=== PATIENT | female | born 1995 | race Caucasian/White ===

== ENCOUNTER 2016-10-12 18:22 | Emergency (ER) | payer MEDICAID ==
[~2016-10-12] VITALS: Ht 165.1 cm; Wt 97.5 kg
[~2016-10-12 18:22] MED LIST: BENT20TA PO
[2016-10-12 18:24] VITALS: BP 123/75; PULSE 118; RESP 14; TEMP 98.8; O2SAT 96
[2016-10-12] MEDS ORDERED: SODIUM CHLOR 0.9% 1000 ML INJ 1,000 ML IV SCH (22:04)
[2016-10-12] MEDS ORDERED: ONDANSETRON HCL 4 MG/2 ML VIAL IVP ONE (22:15)
[2016-10-12] MEDS ORDERED: FAMOTIDINE 20 MG/2 ML VIAL IV PUSH ONE (22:15)
[2016-10-12] MEDS ORDERED: SODIUM CHLORIDE 0.9% FLUSH 5 ML FLUSH IVF PRN (22:15)
[2016-10-12 22:43] LABS: AUTOMATED NEUTROPHIL # 8.5 TH/MM3 (1.8-7.7); BASOPHIL % 0.1 % (0.0-2.0); EOSINOPHIL % 0.1 % (0.0-4.0); HEMATOCRIT 35.7 % (35.0-46.0); HEMO FLAGS DIFF FINAL; LYMPH % 8.5 % (9.0-44.0); LYMPHOCYTE # 0.8 TH/MM3 (1.0-4.8); MEAN CELL VOLUME 79.6 FL (80.0-100.0); MEAN CORPUSCULAR HEMOGLOBIN 27.5 PG (27.0-34.0); MEAN CORPUSCULAR HGB CONC 34.5 % (32.0-36.0); MONO % 4.7 % (0.0-8.0); NEUT % 86.6 % (16.0-70.0); PLATELET COUNT 220 TH/MM3 (150-450); RED BLOOD COUNT 4.48 MIL/MM3 (4.00-5.30); RED CELL DISTRIBUTION WIDTH 13.9 % (11.6-17.2); WHITE BLOOD COUNT 9.8 TH/MM3 (4.0-11.0)
[2016-10-12 22:45] VITALS: RESP 16; O2SAT 96
[2016-10-12 23:04] LABS: ANION GAP 8 MEQ/L (5-15); AST (GOT) 11 U/L (15-37); BICARBONATE 25.8 MEQ/L (21.0-32.0); BLOOD UREA NITROGEN 11 MG/DL (7-18); CHLORIDE 105 MEQ/L (98-107); GLOMERULAR FILTRATION RATE 81 ML/MIN (>89); POTASSIUM 3.5 MEQ/L (3.5-5.1); SODIUM (NA) 139 MEQ/L (136-145)
--- NOTE | 2016-10-12 23:04 | PD ---
HPI Chief Complaint: GI Complaint Time Seen by Provider: 21:57 Travel History International Travel<30 days: No Contact w/Intl Traveler<30days: No Traveled to known affect area: No History of Present Illness HPI Patient is a 21-year-old female who comes in complaining of nausea, vomiting, diarrhea. She says it started early this morning with diarrhea, and the vomiting started. She has had several episodes of both vomiting and diarrhea. She denies seeing any blood in her stool or vomit. She says she has felt chilled, but has not taken her temperature. She says her abdomen hurts all over , but worse in the epigastric area. She denies any dysuria. She does complain of low back pain. She has not been able to keep any food or liquids down today. [facility] Past Medical History Developmental Delay: No Diminished Hearing: No Genitourinary: Yes (UTI) Immunizations Current: Yes ?: Not LMP: 10/2016 Past Surgical History Section: Yes Tonsillectomy: Yes Social History Alcohol Use: No Tobacco Use: No (never) Substance Use: No Allergies-Medications (Allergen,Severity, Reaction): Coded Allergies: Zithromax (Verified Allergy, Severe, HIVES AND ANAPHYLAXIS, 10/12/16) Reported Meds & Prescriptions Reported Meds & Active Scripts Active Zofran Odt (Ondansetron Odt) 4 Mg Tab 4 Mg SL Q6HR PRN Review of Systems Except as stated in HPI: all other systems reviewed are Neg General / Constitutional: Positive: Chills, No: Fever HENT: No: Headaches, Lightheadedness Cardiovascular: No: Chest Pain or Discomfort Respiratory: No: Shortness of Breath Gastrointestinal: Positive: Nausea, Vomiting, Diarrhea, Abdominal Pain Genitourinary: No: Dysuria, Flank Pain Musculoskeletal: Positive: Pain Skin: No Rash, No Change in Pigmentation Neurologic: No: Weakness, Dizziness Physical Exam Narrative GENERAL: Awake and alert in no acute distress. SKIN: Warm and dry. HEAD: Atraumatic. Normocephalic. EYES: Pupils equal and round. No scleral icterus. ENT: No nasal bleeding or discharge. Mucous membranes pink and moist. NECK: Trachea midline. No JVD. CARDIOVASCULAR: Regular rate and rhythm. No murmur appreciated. RESPIRATORY: No accessory muscle use. Clear to auscultation. Breath sounds equal bilaterally. GASTROINTESTINAL: Abdomen soft, nondistended. Very mild diffuse tenderness. Worse in the epigastric area. No CVA tenderness. MUSCULOSKELETAL: No obvious deformities. No clubbing. No cyanosis. No edema. NEUROLOGICAL: Awake and alert. No obvious cranial nerve deficits. Motor grossly within normal limits. Normal speech. PSYCHIATRIC: Appropriate mood and affect; insight and judgment normal. Data Data Last Documented VS Vital Signs Date Time Temp Pulse Resp B/P Pulse Ox O2 Delivery O2 Flow Rate FiO2 10/12/16 22:45 16 96 Room Air 10/12/16 18:24 98.8 118 123/75 Orders Complete Blood Count With Diff (10/12/16 22:04) Comprehensive Metabolic Panel (10/12/16 22:04) Urinalysis - C+S If Indicated (10/12/16 22:04) Ua Includes Microscopic (10/12/16 22:04) Iv Access Insert/Monitor (10/12/16 22:04) Ecg Monitoring (10/12/16 22:04) Oximetry (10/12/16 22:04) Ondansetron Inj (Zofran Inj) (10/12/16 22:15) Sodium Chloride 0.9% Flush (Ns Flush) (10/12/16 22:15) Famotidine Inj (Pepcid Inj) (10/12/16 22:15) Ed Urine Pregnancytest Poc (10/12/16 22:04) Sodium Chlor 0.9% 1000 Ml Inj (Ns 1000 M (10/12/16 22:04) Dicyclomine (Bentyl) (10/13/16 00:15) Labs Laboratory Tests Test 10/12/16 10/12/16 22:22 22:25 White Blood Count 9.8 TH/MM3 Red Blood Count 4.48 MIL/MM3 Hemoglobin 12.3 GM/DL Hematocrit 35.7 % Mean Corpuscular Volume 79.6 FL Mean Corpuscular Hemoglobin 27.5 PG Mean Corpuscular Hemoglobin 34.5 % Concent Red Cell Distribution Width 13.9 % Platelet Count 220 TH/MM3 Mean Platelet Volume 9.1 FL Neutrophils (%) (Auto) 86.6 % Lymphocytes (%) (Auto) 8.5 % Monocytes (%) (Auto) 4.7 % Eosinophils (%) (Auto) 0.1 % Basophils (%) (Auto) 0.1 % Neutrophils # (Auto) 8.5 TH/MM3 Lymphocytes # (Auto) 0.8 TH/MM3 Monocytes # (Auto) 0.5 TH/MM3 Eosinophils # (Auto) 0.0 TH/MM3 Basophils # (Auto) 0.0 TH/MM3 CBC Comment DIFF FINAL Differential Comment Sodium Level 139 MEQ/L Potassium Level 3.5 MEQ/L Chloride Level 105 MEQ/L Carbon Dioxide Level 25.8 MEQ/L Anion Gap 8 MEQ/L Blood Urea Nitrogen 11 MG/DL Creatinine 0.88 MG/DL Estimat Glomerular Filtration 81 ML/MIN Rate Random Glucose 103 MG/DL Calcium Level 8.7 MG/DL Total Bilirubin 1.5 MG/DL Aspartate Amino Transf 11 U/L (AST/SGOT) Alanine Aminotransferase 17 U/L (ALT/SGPT) Alkaline Phosphatase 68 U/L Total Protein 8.2 GM/DL Albumin 3.8 GM/DL Urine Color YELLOW Urine Turbidity CLOUDY Urine pH 6.0 Urine Specific [place] 1.036 Urine Protein 30 mg/dL Urine Glucose (UA) NEG mg/dL Urine Ketones NEG mg/dL Urine Occult Blood LARGE Urine Nitrite NEG Urine Bilirubin NEG Urine Urobilinogen LESS THAN 2.0 MG/DL Urine Leukocyte Esterase NEG Urine RBC 21 /hpf Urine WBC 3 /hpf Urine Squamous Epithelial 3 /hpf Cells Urine Amorphous Sediment OCC Urine Bacteria FEW /hpf Urine Mucus MANY /lpf Microscopic Urinalysis Comment CULT NOT INDICATED MDM Medical Decision Making Medical Screen Exam Complete: Yes Emergency Medical Condition: Yes Differential Diagnosis Gastroenteritis versus gastritis versus colitis versus UTI versus pyelonephritis Narrative Course Patient is a 21-year-old female comes in complaining of nausea vomiting, diarrhea. Exam shows mild tenderness in the abdomen, however abdomen is very soft. IV established, labs sent. Labs show no acute abnormalities. Urinalysis negative for infection. Given IV fluids, Zofran, famotidine, Bentyl. Patient reports improvement of symptoms. She is able to drink Gatorade without vomiting. Will be discharged home. She is comfortable with discharge at this time. Advised to return if she is unable to keep fluids down. Advised to return if she has any worsening pain. Given a prescription for a few Zofran to take as needed for nausea. Diagnosis Primary Impression: Nausea vomiting and diarrhea Patient Instructions: Acute Nausea and Vomiting (ED), General Instructions Additional Instructions: Drink plenty of fluids. If you are hungry, eat a bland diet for at least the next day. Take the Zofran as needed for nausea. Return to the ED as needed for any worsening symptoms. Follow up with your primary care doctor. Scripts Ondansetron Odt (Zofran Odt)4 Mg Tab4 Mg SL Q6HR PRN (Nausea/Vomiting) #10 TAB Ref 0 Prov:Brandi Gonsalez MD 10/13/16 Disposition: 01 DISCHARGE HOME Condition: Stable Brandi Gonsalez MD Oct 12, 2016 23:04
[2016-10-12 23:08] LABS: ALKALINE PHOSPHATASE 68 U/L (45-117); ALT (GPT) 17 U/L (10-53); TOTAL BILIRUBIN ADULT 1.5 MG/DL (0.2-1.0)
[2016-10-12 23:24] LABS: BACTERIA, URINE FEW /hpf; BLOOD, URINE LARGE (NEG); COMMENT (UR) CULT NOT INDICATED; CULTURE IF INDICATED CULT NOT INDICATED; GLUCOSE,URINE NEG (NEG); KETONE, URINE NEG (NEG); MUCUS URINE MANY /lpf (OCC); NITRITE,URINE NEG (NEG); SQUAMOUS EPITHELIAL CELL URINE 3 /hpf (0-5); URINE COLOR YELLOW (YELLW/STRAW)
[2016-10-13] MEDS ORDERED: DICYCLOMINE HCL 10 MG CAP PO ONE (00:15)
[2016-10-13] MEDS ORDERED: ZOFR4TAB3 SL (00:47)
== END 2016-10-13 01:37 | disposition home or self-care (01) ==
LOC: NEPE 18:22
DX: R11.2 Nausea with vomiting, unspecified (principal); R19.7 Diarrhea, unspecified; R10.13 Epigastric pain; M54.5 Low back pain; Z87.440 Personal history of urinary (tract) infections
CPT/HCPCS: 80053; 81001; 84703; 85025; 96374; 96375; 99284; J2405; J7030

== ENCOUNTER 2017-11-13 15:41 | Emergency (ER) | payer MEDICAID ==
[~2017-11-13 15:41] MED LIST changes: -BENT20TA PO; +ZOFR4TAB3 SL
[2017-11-13 15:42] VITALS: BP 145/72; PULSE 76; RESP 14; TEMP 98.2; O2SAT 100
--- NOTE | 2017-11-13 17:55 | PD ---
HPI Chief Complaint: Neuro Symptoms/ Deficits Time Seen by Provider: 15:49 Travel History International Travel<30 days: No Contact w/Intl Traveler<30days: No Traveled to known affect area: No History of Present Illness HPI 22-year-old female who states she is 11 weeks gestation presents emergency department for evaluation of brief loss of peripheral vision in her left eye, left sided numbness and tingling and slight disorientation. Patient states this is happened in the past multiple times. She has never sought follow-up for it. She states that she is she felt maybe she should get it evaluated. Symptoms have nearly completely resolved. Denies any chest or tightness. No difficulty breathing. No other symptoms to report at this time. PFSH Past Medical History Developmental Delay: No Diminished Hearing: No Genitourinary: Yes (UTI) Immunizations Current: Yes ?: Past Surgical History Section: Yes Tonsillectomy: Yes Social History Alcohol Use: No Tobacco Use: No (never) Substance Use: No Allergies-Medications (Allergen,Severity, Reaction): Coded Allergies: azithromycin (Unverified Allergy, Severe, HIVES AND ANAPHYLAXIS, 05/16/17) Reported Meds & Prescriptions Reported Meds & Active Scripts Active Zofran Odt (Ondansetron Odt) 4 Mg Tab 4 Mg SL Q6HR PRN Review of Systems Except as stated in HPI: all other systems reviewed are Neg Physical Exam Narrative Well-nourished female patient, nontoxic-appearing in no acute distress. Respirations are even, nonlabored. Heart rate is regular. Patient moves all extremities. No obvious deformity. Data Data Last Documented VS Vital Signs Date Time Temp Pulse Resp B/P (MAP) Pulse Ox O2 Delivery O2 Flow Rate FiO2 11/13/17 18:24 11/13/17 15:42 98.2 76 14 100 Orders Orders Complete Blood Count With Diff (11/13/17 15:57) Basic Metabolic Panel (Bmp) (11/13/17 15:57) Urinalysis - C+S If Indicated (11/13/17 15:57) [facility] Medical Decision Making Medical Screen Exam Complete: Yes Emergency Medical Condition: Yes Medical Record Reviewed: Yes Differential Diagnosis TIA versus CVA versus vasospasm versus electrolyte abnormality versus anxiety versus paresthesias Narrative Course 22-year-old female presents to emergency department for evaluation. Patient appears without distress. Her vital signs are stable. She has no obvious focal deficits. She appears nontoxic. Workup is initiated. Prior to completion in bed assignment, patient chooses to leave. AMA: The risks of leaving against medical advice without further evaluation treatment were discussed with the patient. These risks include cardiac dysfunction, cardiac dysrhythmia, possible heart attack, possible stroke or . The patient indicated understanding of these risks and appeared to have the capacity to make this decision. Diagnosis Primary Impression: Neurological complaint Disposition: 07 AGAINST MEDICAL ADVICE Condition: Stable Idalia Ellison Nov 13, 2017 17:55
== END 2017-11-13 18:24 | disposition left against medical advice (07) ==
LOC: NED 15:41
DX: R29.90 Unspecified symptoms and signs involving the nervous system (principal)
CPT/HCPCS: 99281

== ENCOUNTER 2018-05-17 00:45 | Inpatient (IN) ==
[2018-05-17] MEDS ORDERED: Oxytocin 30 Units/500ml Premix 30 UNITS/500 ML BAG IV.SIG ONE (01:22)
[2018-05-17] MEDS ORDERED: Sod Chloride 0.9% Inj 1,000 ML IV.CONT PRN (01:22)
[2018-05-17] MEDS ORDERED: Naloxone Inj 0.4 MG/ML Vial IV.PUSH PRN (01:22)
[2018-05-17] MEDS ORDERED: Sodium Chlor 0.9% Inj 500 ML IV.SIG PRN (01:22)
[2018-05-17] MEDS ORDERED: fentaNYL Citrate Inj 100 MCG/2 ML Ampul IV.PUSH PRN ×2 (01:22)
[2018-05-17] MEDS ORDERED: Citric Acid/Sodium Citrate Liq 30 ML UDC PO SCH (01:30)
--- NOTE | 2018-05-17 01:34 | P.HPOB ---
History of Present Illness Primary Care Physician: UNKNOWN Dr. Maldonado History of Present Illness: Patient is 22-year-old white female at 38 weeks's previous section [address] Maldon[address]'s who presents clinic contractions. The patient desires a attempt this and understands that is a good idea but does have a slightly less than 1% risk of uterine rupture during that procedure and she is willing to accept that risk. She is lo every 2 minutes that she describes as painful and is been worsening through the day. The heart rate tracing is reactive Weeks Gestation:: 38 Para: 1 (Previous ) : 2 Review of Systems Constitutional: Denies anorexia, Denies body ache(s), Denies chills, Denies daytime sleepiness, Denies excessive sweating, Denies fatigue, Denies fever(s), Denies headache(s), Denies increased appetite, Denies lack of energy, Denies malaise, Denies night sweats, Denies weakness, Denies weight gain, Denies weight loss, Denies other Cardiovascular: Denies bluish discoloration of hand/feet, Denies chest pain, Denies chest pain at rest, Denies chest pain with activity, Denies excessive sweating, Denies fainting, Denies fast heart rate, Denies foot swelling, Denies generalized swelling, Denies irregular heart rhythm, Denies leg pain with activity, Denies leg sores, Denies leg swelling, Denies lightheadedness, Denies radiating jaw, neck or arm pain, Denies rapid, pounding, or irregular heartbeat , Denies shortness of breath, Denies shortness of breath with activity, Denies shortness of breath when lying down, Denies shortness of breath causing sudden awakening, Denies slow heart rate, Denies other Respiratory: Denies change in phlegm color, Denies chest congestion, Denies cough, Denies coughing up blood, Denies excessive phlegm production, Denies pain on inspiration, Denies pain with cough, Denies shortness of breath, Denies shortness of breath with activity, Denies snoring, Denies stridor, Denies wheezing, Denies other Gastrointestinal: Denies abdominal pain, Denies belching, Denies black, tarry stools, Denies bloating, Denies bright, red blood in stools, Denies change in bowel habits, Denies constant urge to pass stool, Denies change in stools, Denies coffee ground vomit, Denies constipation, Denies cramping, Denies difficulty swallowing, Denies excessive passing of gas, Denies feeling full early, Denies heartburn, Denies incontinent of stools, Denies loose stools, Denies nausea, Denies pain with swallowing, Denies vomiting, Denies vomiting blood, Denies other Genitourinary: Denies abnormal periods, Denies abnormal vaginal bleeding, Denies absent period, Denies bleeding between periods, Denies blood in urine, Denies difficulty starting urination, Denies difficulty urinating, Denies dribbling after urination, Denies frequent nighttime urination, Denies genital itching, Denies genital lesions, Denies heavy periods, Denies hot flashes, Denies light periods, Denies nipple discharge, Denies painful intercourse, Denies painful periods, Denies painful urination, Denies pelvic pain, Denies prolapse symptoms, Denies sexual problems, Denies side pain, Denies urinary incontinence, Denies urinary urgency, Denies vaginal discharge, Denies vaginal dryness, Denies vaginal odor, Denies vaginal itching, Denies other Neurologic: Denies abnormal hearing, Denies abnormal movements, Denies abnormal speech, Denies abnormal walking, Denies behavioral changes, Denies burning sensations, Denies confusion, Denies dizziness, Denies fainting, Denies frequent falls, Denies headache(s), Denies lack of coordination, Denies localized weakness, Denies loss of vision, Denies memory loss, Denies numbness, Denies other visual disturbances, Denies radiating pain, Denies restless legs, Denies convulsions, Denies seizure-like activity, Denies sensory deficit, Denies tingling, Denies tingling/numbness/burning sensations, Denies tremor(s), Denies unsteadiness, Denies weakness, Denies other PMFSH - History History Provided By: Patient - Medical History Medical History: Medical History (Last Updated 05/17/18 @ 01:29 by Allen Barriga MD) Anxiety and depression History of pre-eclampsia in prior , currently Previous section complicating - Surgical History Surgical History: Surgical History (Last Updated 08/16/18 @ 01:29 by Allen Barriga MD) History of adenoidectomy Hx of tonsillectomy - Tobacco History Smoking Status: Never smoker - Alcohol History How Often Do You Have a Drink Containing Alcohol: Never - Substance Use History Substance History: No History of Abuse - Travel History History of Recent Travel: No Recent Travel in the [place] Within the Last 8 Weeks: No Recent Travel Out of the Country Within the Last 8 Weeks: No Medications and Allergies Active Medications: Active Medications Citric Acid/Sodium Citrate (Sodium Citrate/Citric Acid Liq) 30 ml PO [employer] [facility] Stop: 05/21/18 01:29 Fentanyl Citrate (Fentanyl Inj) 50 mcg IV.PUSH Q1H PRN PRN Reason: Pain Scale 3 - 5 Fentanyl Citrate (Fentanyl Inj) 100 mcg IV.PUSH Q1H PRN PRN Reason: PAIN SCALE 6 TO 10 Lactated Ringer's (Lr 1000 Ml Inj) 1,000 mls @ 3,000 mls/hr IV.SIG UNSCH PRN PRN Reason: compromise or epidural Sodium Chloride (Ns Inj) 500 mls @ 1,000 mls/hr IV.SIG UNSCH PRN PRN Reason: SEE LABEL COMMENTS Lidocaine HCl (Xylocaine 1% Inj) 0.1 ml I-DERMAL PRN PRN PRN Reason: For IV start Stop: 05/20/18 01:21 Lidocaine HCl (Xylocaine 1% Inj) 10 ml INFILTRATN PRN PRN PRN Reason: For episiotomy repair Stop: 05/19/18 01:21 Mineral Oil (Muri-Lube Oil) 10 ml TOPICAL PRN PRN PRN Reason: PRN perineal massage Naloxone HCl (Narcan Inj) 0.1 mg IV.PUSH Q2M PRN PRN Reason: for opiate reversal Allergies Allergy/AdvReac Type Severity Reaction Status Date / Time azithromycin Allergy Severe HIVES AND Unverified 05/16/17 23:19 ANAPHYLAXIS Home Medications Medication Instructions Recorded Confirmed Type Aspir-81 05/13/18 History Multi 81 mg 05/13/18 History sertraline [Zoloft] 50 mg PO DAILY 05/13/18 05/13/18 History Exam Vital signs: Vital Signs 05/17/18 01:11 Pulse Rate 72 Respiratory Rate 18 Blood Pressure 123/80 - Constitutional no acute distress, obese - Routine HEENT Exam Head: Present: normocephalic, atraumatic Eye: Present: PERRL - Routine Respiratory Exam Present: CTA bilaterally - Routine Cardiovascular Exam Present: RRR, S1, S2 - Routine Exam Comments: Cervix is 2-3/50%/-3/cephalic - Routine Neurological Exam Present: alert, oriented X3, CN II-XII intact [place]elly VTE Risk Assessment Capmary loui VTE Risk Assessment: No/Low Risk (score <= 1) Caprini Risk Assessment Model: Point Value = 1 Point Value = 2 Point Value = 3 Point Value = 5 Age 41-60 Minor surgery BMI > 25 kg/m2 Swollen legs Varicose veins or History of unexplained or recurrent spontaneous Oral contraceptives or hormone replacement Sepsis (< 1 month) Serious lung disease, including pneumonia (< 1 month) Abnormal pulmonary function Acute myocardial infarction Congestive heart failure (< 1 month) History of inflammatory bowel disease Medical patient at bed rest Age 61-74 Arthroscopic surgery Major open surgery (> 45 min) Laparoscopic surgery (> 45 min) Malignancy Confined to bed (> 72 hours) Immobilizing plaster cast Central venous access Age >= 75 History of VTE Family history of VTE Factor V Leiden Prothrombin [id number] Lupus anticoagulant Anticardiolipin antibodies Elevated serum homocysteine Heparin-induced thrombocytopenia Other congenital or acquired thrombophilia Stroke (< 1 month) Elective arthroplasty Hip, pelvis, or leg fracture Acute spinal cord injury (< 1 month) Prophylaxis Regimen: Total Risk Factor Score Risk Level Prophylaxis Regimen 0-1 Low Early ambulation 2 Moderate Order ONE of the following: *Sequential Compression Device (SCD) *Heparin 5000 units SQ BID 3-4 Higher Order ONE of the following medications: *Heparin 5000 units SQ TID *Enoxaparin/Lovenox 40 mg SQ daily (WT < 150 kg, CrCl > 30 mL/min) *Enoxaparin/Lovenox 30 mg SQ daily (WT < 150 kg, CrCl > 10-29 mL/min) *Enoxaparin/Lovenox 30 mg SQ BID (WT < 150 kg, CrCl > 30 mL/min) AND/OR *Sequential Compression Device (SCD) 5 or more Highest Order ONE of the following medications: *Heparin 5000 units SQ TID (Preferred with Epidurals) *Enoxaparin/Lovenox 40 mg SQ daily (WT < 150 kg, CrCl > 30 mL/min) *Enoxaparin/Lovenox 30 mg SQ daily (WT < 150 kg, CrCl > 10-29 mL/min) *Enoxaparin/Lovenox 30 mg SQ BID (WT < 150 kg, CrCl > 30 mL/min) AND *Sequential Compression Device (SCD) Assessment and Plan - Diagnosis (1) Previous section complicating Code(s): O34.219 - Maternal care for unspecified type scar from previous delivery Status: Acute (2) Uterine contractions during Code(s): O62.2 - Other uterine inertia Status: Acute (3) History of pre-eclampsia in prior , currently Code(s): O09.299 - Supervision of with other poor reproductive or obstetric history, unspecified trimester Status: Acute (4) 38 weeks gestation of Code(s): Z3A.38 - 38 weeks gestation of Status: Acute - Plan Patient is 38 week multiparous patient previous desires delivery and she is in early labor at this time with a cervix of 2-3/50/-3/cephalic and is lo every other minute every 2 minutes painfully, she is having a small amount of old blood passed per vagina nothing active for bright red area heart rate tracing is reactive. Discussed patient's care with Dr. Maldonado we agreed to observe her overnight for cervical change and reevaluate in 6 hours or so and she has may change and would proceed with augmentation and anticipate delivery if she is the same and contractions misplaced that she could possibly go home at that point
[2018-05-17 02:14] LABS: Baso # (Auto) 0.1 th/mm3 (0.0-0.2); Baso % (Auto) 0.6 % (0.0-2.0); Eos # (Auto) 0.2 th/mm3 (0.0-0.4); Eos % (Auto) 1.6 % (0.0-4.0); Hematocrit 38.6 % (35.0-46.0); Hemoglobin 12.9 gm/dL (11.6-15.3); Lymph # (Auto) 2.4 th/mm3 (1.0-4.8); Lymph % (Auto) 20.5 % (9.0-44.0); Mean Corpuscular HGB Conc 33.4 % (32.0-36.0); Mean Corpuscular Hemoglobin 27.9 pg (27.0-34.0); Mean Corpuscular Volume 83.5 fL (80.0-100.0); Mean Platelet Volume 9.4 fL (7.0-11.0); Mono % (Auto) 8.8 % (0.0-8.0); Neut # (Auto) 8.1 th/mm3 (1.8-7.7); Neut % (Auto) 68.5 % (16.0-70.0); Platelet Count 177 th/mm3 (150-450); Red Blood Count 4.63 mil/mm3 (4.00-5.30); Red Cell Distribution Width 14.5 % (11.6-17.2); White Blood Count 11.9 th/mm3 (4.0-11.0)
[2018-05-17 02:42] LABS: Amphetamine Urine With Conf Neg (Neg); Benzodiazepine Urine With Conf Neg (Neg)
[2018-05-17 02:45] LABS: Bacteria,Urine Rare /hpf; Bilirubin,Urine Negative (Negative); Clarity,Urine Hazy (Clear); Color,Urine Yellow (Yellw/Straw); Glucose,Urine (UA) Negative (Negative); Leukocyte Esterase,Urine Trace (Negative); Mucus,Urine Few /lpf (Occasional); Nitrite,Urine Negative (Negative); Specific Gravity,Urine 1.023 (1.002-1.035); Squamous Epithelial Cell,Urine 5 /hpf (0-5)
[2018-05-17 06:52] VITALS: BP 126/81; PULSE 68; RESP 15; TEMP 98
[2018-05-17] MEDS ORDERED: Prenatal Vit/Ca/Iron/Folic Acid Tablet PO SCH (09:00)
[2018-05-17] MEDS ORDERED: Ferrous Sulfate 325 MG Tablet PO SCH (09:00)
[2018-05-17] MEDS ORDERED: Sertraline 50 MG Tablet PO SCH (09:00)
--- NOTE | 2018-05-17 09:16 | P.OBANTE ---
Subjective Antepartum ROS: Reports: Contractions Objective Vital Signs and I&O: Vital Signs 05/17/18 01:11 05/17/18 03:59 05/17/18 06:51 Temperature 97.6 F 98.0 F Pulse Rate 72 69 68 Respiratory Rate 18 18 15 Blood Pressure 123/80 121/55 L 126/81 Intake & Output 05/16/18 05/17/18 05/17/18 18:59 06:59 18:59 Weight 105.233 kg Lab and Micro Results: Laboratory Results - last 24 hr 05/17/18 05/17/18 05/17/18 01:00 01:00 01:30 WBC 11.9 H RBC 4.63 Hgb 12.9 Hct 38.6 MCV 83.5 MCH 27.9 MCHC 33.4 RDW 14.5 Plt Count 177 MPV 9.4 Neut % (Auto) 68.5 Lymph % (Auto) 20.5 Luna % (Auto) 8.8 H Eos % (Auto) 1.6 Baso % (Auto) 0.6 Neut # (Auto) 8.1 H Lymph # (Auto) 2.4 Luna # (Auto) 1.0 H Eos # (Auto) 0.2 Baso # (Auto) 0.1 WBC Differential . Differential Comment Auto diff final Urine Color Yellow Urine Clarity Hazy H Urine pH 6.0 Ur Specific [place] 1.023 Urine Protein 30 H Urine Glucose (UA) Negative Urine Ketones Negative Urine Occult Blood Large H Urine Nitrate Negative Urine Bilirubin Negative Urine Urobilinogen Less than 2 Ur Leukocyte Esterase Trace H Urine RBC 9 H Urine WBC 5 Ur Squamous Epith Cells 5 Urine Bacteria Rare H Urine Mucus Few H Micro UA Comment Culture not ind Urine Culture Comments Culture not ind Urine Opiates Screen Neg Ur Barbiturates Screen Neg Ur Amphetamine Screen Neg U Benzodiazepines Scrn Neg Urine Cocaine Screen Neg U Cannabinoids Screen Neg Blood Type Blood Type Recheck Antibody Screen 05/17/18 01:30 WBC RBC Hgb Hct MCV MCH MCHC RDW Plt Count MPV Neut % (Auto) Lymph % (Auto) Luna % (Auto) Eos % (Auto) Baso % (Auto) Neut # (Auto) Lymph # (Auto) Luna # (Auto) Eos # (Auto) Baso # (Auto) WBC Differential Differential Comment Urine Color Urine Clarity Urine pH Ur Specific [place] Urine Protein Urine Glucose (UA) Urine Ketones Urine Occult Blood Urine Nitrate Urine Bilirubin Urine Urobilinogen Ur Leukocyte Esterase Urine RBC Urine WBC Ur Squamous Epith Cells Urine Bacteria Urine Mucus Micro UA Comment Urine Culture Comments Urine Opiates Screen Ur Barbiturates Screen Ur Amphetamine Screen U Benzodiazepines Scrn Urine Cocaine Screen U Cannabinoids Screen Blood Type O Negative Blood Type Recheck Not needed Antibody Screen Negative Physical Exam: GENERAL: Well-nourished, well-developed patient. CARDIOVASCULAR: Regular rate and rhythm without murmurs, gallops, or rubs. RESPIRATORY: Breath sounds equal bilaterally. No accessory muscle use. ABDOMEN/GI: Abdomen soft, non-tender. Fundus: SOFT NONTENDER Membranes: INTACT Uterine Contractions: IRREGULAR AND MILD FHT's: Category: [1] Baseline: [110'S] Reactive: [+] Variability: [+] Decels: [n] Assessment and Plan - Plan Patient is 38 week multiparous patient previous desires delivery and she is in early labor at this time with a cervix of 2-3/50/-3/cephalic and is lo every other minute every 2 minutes painfully, she is having a small amount of old blood passed per vagina nothing active for bright red area heart rate tracing is reactive. Discussed patient's care with Dr. Maldonado we agreed to observe her overnight for cervical change and reevaluate in 6 hours or so and she has may change and would proceed with augmentation and anticipate delivery if she is the same and contractions misplaced that she could possibly go home at that point Discharge Planning: DC HOME TODAY WILL GIVE VISTARIL PT INSTRUCTED TO RETURN WHEN UC'S STRONGER Q 5 MINUTES FOR ONE HOUR, HEAVY BLEEDING OR SROM
== END 2018-05-17 09:58 | disposition home or self-care (01) ==
LOC: HOBED 00:45 → H2E 01:25
PROVIDERS: ADMIT Obstetrics & Gynecology; ATTEND Obstetrics & Gynecology

== ENCOUNTER 2018-05-18 14:37 | Inpatient (IN) ==
--- NOTE | 2018-05-18 15:39 | P.HPOB ---
History of Present Illness Service: Obstetrics Primary Care Physician: No Primary Care Physician Chief Complaint: Intrauterine at 38 weeks in labor History of Present Illness: This a patient who has been followed in my office and has a previous section and desires a vaginal after she comes in in active labor her cervix is 6 and we will be admitting her for active management of labor and expect a normal vaginal delivery. She denies rupture of membrane she did have a little bit of show yesterday and the baby is not moving as well as past but her strip is a category 1. We have discussed the risks of benefits and alternatives of vaginal after in the office in detail. Weeks Gestation:: 38 Para: 1 : 2 - Inpatient Certification I certify that the inpatient services were ordered in accordance with Medicare regulations governing the order. This includes certification that hospital inpatient services are reasonable and necessary and in the case of services not specified as inpatient-only under 42 CFR 419.22(n), that they are appropriately provided as inpatient services in accordance to with the 2-midnight benchmark under 43 CFR 412.3(e) Estimated Total Length of Stay (Days): 3 Review of Systems All other systems reviewed negative except as stated in HPI (no s/s of pre eclampsia.) PMFSH - History History Provided By: Patient - Medical History Medical History: Medical History (Last Updated 05/18/18 @ 15:31 by Kenny Maldonado MD) Large for dates complicating in third trimester, antepartum Rh negative status during in third trimester - Surgical History Surgical History: Surgical History (Last Updated 05/18/18 @ 15:28 by Kenny Maldonado MD) Hx of adenoidectomy Hx of tonsillectomy - Family History Family History: Family History (Last Updated 05/18/18 @ 15:33 by Kenny Maldonado MD) Other Alcoholism Depression Heart disease High blood pressure High cholesterol Lung cancer - Tobacco History Second Hand Smoke Exposure: No Tobacco Use In Past 30 Days: No Smoking Status: Never smoker - Alcohol History How Often Do You Have a Drink Containing Alcohol: Never - Substance Use History Substance History: No History of Abuse - Travel History History of Recent Travel: No Recent Travel in the [place] Within the Last 8 Weeks: No Recent Travel Out of the Country Within the Last 8 Weeks: No Medications and Allergies Allergies Allergy/AdvReac Type Severity Reaction Status Date / Time azithromycin Allergy Severe HIVES AND Verified 05/17/18 01:52 ANAPHYLAXIS Home Medications Medication Instructions Recorded Confirmed Type Aspir-81 81 mg PO DAILY 05/13/18 05/17/18 History Multi 81 mg PO DAILY 05/13/18 05/17/18 History sertraline [Zoloft] 50 mg PO DAILY 05/13/18 05/17/18 History ferrous sulfate [iron] 325 mg PO DAILY 05/17/18 05/17/18 History Exam Vital signs: Vital Signs 05/18/18 14:55 05/18/18 14:56 Temperature 97.7 F Pulse Rate 62 Respiratory Rate 18 Blood Pressure 150/80 H Intake & Output 05/17/18 05/18/18 05/18/18 18:59 06:59 18:59 Weight 106.141 kg Narrative: GENERAL: Well-nourished, well-developed patient. CARDIOVASCULAR: Regular rate and rhythm without murmurs, gallops, or rubs. RESPIRATORY: Breath sounds equal bilaterally. No accessory muscle use. ABDOMEN/GI: Abdomen soft, non-tender. Fundus: 40 cm GENITOURINARY: External Genitalia: intact and normal in appearance Cervix: Dilatation: -6 Effacement: 100- Station: -3 Presentation: Vertex Membranes: Intact Uterine Contractions: - FHT's: Category: 1 Baseline: [-] Reactive: [-] Variability: [-] Decels: [-] EXTREMITIES: No cyanosis or edema, non-tender, without signs of DVT. Results - Labs Group B Strep: Negative Caprini VTE Risk Assessment Caprini VTE Risk Assessment: No/Low Risk (score <= 1) Caprini Risk Assessment Model: Point Value = 1 Point Value = 2 Point Value = 3 Point Value = 5 Age 41-60 Minor surgery BMI > 25 kg/m2 Swollen legs Varicose veins or History of unexplained or recurrent spontaneous Oral contraceptives or hormone replacement Sepsis (< 1 month) Serious lung disease, including pneumonia (< 1 month) Abnormal pulmonary function Acute myocardial infarction Congestive heart failure (< 1 month) History of inflammatory bowel disease Medical patient at bed rest Age 61-74 Arthroscopic surgery Major open surgery (> 45 min) Laparoscopic surgery (> 45 min) Malignancy Confined to bed (> 72 hours) Immobilizing plaster cast Central venous access Age >= 75 History of VTE Family history of VTE Factor V Leiden Prothrombin [id number] Lupus anticoagulant Anticardiolipin antibodies Elevated serum homocysteine Heparin-induced thrombocytopenia Other congenital or acquired thrombophilia Stroke (< 1 month) Elective arthroplasty Hip, pelvis, or leg fracture Acute spinal cord injury (< 1 month) Prophylaxis Regimen: Total Risk Factor Score Risk Level Prophylaxis Regimen 0-1 Low Early ambulation 2 Moderate Order ONE of the following: *Sequential Compression Device (SCD) *Heparin 5000 units SQ BID 3-4 Higher Order ONE of the following medications: *Heparin 5000 units SQ TID *Enoxaparin/Lovenox 40 mg SQ daily (WT < 150 kg, CrCl > 30 mL/min) *Enoxaparin/Lovenox 30 mg SQ daily (WT < 150 kg, CrCl > 10-29 mL/min) *Enoxaparin/Lovenox 30 mg SQ BID (WT < 150 kg, CrCl > 30 mL/min) AND/OR *Sequential Compression Device (SCD) 5 or more Highest Order ONE of the following medications: *Heparin 5000 units SQ TID (Preferred with Epidurals) *Enoxaparin/Lovenox 40 mg SQ daily (WT < 150 kg, CrCl > 30 mL/min) *Enoxaparin/Lovenox 30 mg SQ daily (WT < 150 kg, CrCl > 10-29 mL/min) *Enoxaparin/Lovenox 30 mg SQ BID (WT < 150 kg, CrCl > 30 mL/min) AND *Sequential Compression Device (SCD) Assessment and Plan - Plan Intrauterine at term Previous section desires pelvis is adequate Rh- she may need RhoGam History of preeclampsia will watch her blood pressures carefully Allergy to Zithromax
[2018-05-18] MEDS ORDERED: fentaNYL Citrate Inj 100 MCG/2 ML Ampul ONE (15:47)
[2018-05-18] MEDS ORDERED: Oxytocin 30 Units/500ml Premix 30 UNITS/500 ML BAG IV.SIG ONE (15:48)
[2018-05-18] MEDS ORDERED: Naloxone Inj 0.4 MG/ML Vial IV.PUSH PRN ×2 (15:48→19:54)
[2018-05-18] MEDS ORDERED: Sodium Chlor 0.9% Inj 500 ML IV.SIG PRN (15:48)
[2018-05-18] MEDS ORDERED: fentaNYL Citrate Inj 100 MCG/2 ML Ampul IV.PUSH PRN ×2 (15:48)
[2018-05-18] MEDS ORDERED: Sod Chloride 0.9% Inj 1,000 ML IV.CONT PRN (15:48)
[2018-05-18] MEDS ORDERED: Diphtheria/Tetanus/Pertussis Vaccine Inj 0.5 ML Syringe IM ONE (16:00)
[2018-05-18] MEDS ORDERED: Citric Acid/Sodium Citrate Liq 30 ML UDC PO SCH (16:00)
[2018-05-18] MEDS ORDERED: Measles/Mumps/Rubella Vaccine Inj 0.5 ML Vial SQ ONE (16:00)
[2018-05-18] MEDS ORDERED: Bupivacaine PF 0.25% Inj 10 ML Vial ONE (16:12)
[2018-05-18] MEDS ORDERED: fentaNYL 2MCG-Bupiv 0.125% Epi 150 ML EPIDURAL ONE (16:14)
[2018-05-18 16:26] LABS: Baso % (Auto) 0.3 % (0.0-2.0); Eos # (Auto) 0.1 th/mm3 (0.0-0.4); Eos % (Auto) 0.4 % (0.0-4.0); Hematocrit 40.4 % (35.0-46.0); Hemoglobin 13.5 gm/dL (11.6-15.3); Lymph # (Auto) 1.6 th/mm3 (1.0-4.8); Mean Corpuscular HGB Conc 33.4 % (32.0-36.0); Mean Corpuscular Hemoglobin 27.8 pg (27.0-34.0); Mean Corpuscular Volume 83.2 fL (80.0-100.0); Mean Platelet Volume 9.8 fL (7.0-11.0); Mono # (Auto) 1.2 th/mm3 (0.0-0.9); Mono % (Auto) 8.3 % (0.0-8.0); Neut # (Auto) 11.5 th/mm3 (1.8-7.7); Platelet Count 179 th/mm3 (150-450); Red Blood Count 4.85 mil/mm3 (4.00-5.30); White Blood Count 14.3 th/mm3 (4.0-11.0)
[2018-05-18 16:33] LABS: Amphetamine Urine With Conf Neg (Neg); Benzodiazepine Urine With Conf Neg (Neg)
[2018-05-18] MEDS ORDERED: fentaNYL 2MCG-Bupiv 0.125% Epi 150 ML EPIDURAL PRN (16:57)
[2018-05-18] MEDS ORDERED: fentaNYL Citrate Inj 100 MCG/2 ML Ampul EPIDURAL ONE (17:00)
[2018-05-18] MEDS ORDERED: Lidocaine 1% Inj 50 ML Vial ONE (19:17)
[2018-05-18] MEDS ORDERED: Acetaminophen 325 MG Tablet PO PRN (19:54)
[2018-05-18] MEDS ORDERED: Zolpidem Tartrate 5 MG Tablet PO PRN (19:54)
[2018-05-18] MEDS ORDERED: Bisacodyl 10 MG Supp RECTAL PRN (19:54)
[2018-05-18] MEDS ORDERED: Benzocaine 20% Top Spray 60 ML Can TOPICAL PRN (19:54)
[2018-05-18] MEDS ORDERED: Oxytocin 30 Units/500ml Premix 30 UNITS/500 ML BAG IV.CONT SCH (20:00)
--- NOTE | 2018-05-18 20:01 | P.OBDELI ---
Weeks Gestation: 38 Patient Started Active Labor: Yes Active Labor Start Date: 05/18/18 Medical Induction of Labor: No Artificial Rupture of Membrane: Yes Artificial ROM Date: 05/18/18 Anesthesia: Epidural Episiotomy: none Vaginal Delivery: Normal Presentation: Occiput anterior Nuchal Cord: None Delayed Cord Clamping (45 sec): Yes Placenta: Spontaneous delivery, Intact, Uterus explored +, 3 vessel cord Laceration: 1 deg Repair: Vicryl running Estimated blood loss (mL): 300 : Female Infant Female A Weight: 3.26 kg score (1 min): 9 score (5 min): 9 (nice delivery of brunilda. small first degree laceration of the left labia repaired with 5-0 vicryl.)
[2018-05-18] MEDS: Witch Hazel 50%/Glyderin 12.5% 40 Pad Jar RECTAL PRN (23:44)
[2018-05-18] MEDS: Ibuprofen 400 MG Tablet PO PRN (23:46)
[2018-05-18] MEDS: Senna/Docusate Sodium 8.6/50 MG Tablet PO SCH (23:46)
[2018-05-19] MEDS: Sertraline 50 MG Tablet PO SCH (09:12)
[2018-05-19] MEDS: Senna/Docusate Sodium 8.6/50 MG Tablet PO SCH ×2 (09:12→21:12)
[2018-05-19] MEDS: Prenatal Vit/Ca/Iron/Folic Acid Tablet PO SCH (10:00)
[2018-05-19] MEDS: Ibuprofen 400 MG Tablet PO PRN ×2 (10:08→21:12)
--- NOTE | 2018-05-19 10:43 | P.PNOB ---
Subjective Post day: 1 Interval history: Doing well Baby is great Bleeding is normal Pain is well controlled Objective Vital Signs/I&O: Vital Signs 05/18/18 14:55 05/18/18 14:56 05/18/18 16:20 Temperature 97.7 F Pulse Rate 62 57 L Respiratory Rate 18 Blood Pressure 150/80 H 05/18/18 16:23 05/18/18 16:28 05/18/18 16:36 Temperature Pulse Rate 56 L 60 80 Respiratory Rate Blood Pressure 135/82 127/77 135/77 05/18/18 16:41 05/18/18 16:45 05/18/18 16:56 Temperature 98.1 F Pulse Rate 66 59 L 60 Respiratory Rate Blood Pressure 128/70 133/75 05/18/18 17:06 05/18/18 17:11 05/18/18 17:25 Temperature Pulse Rate 60 56 L 55 L Respiratory Rate Blood Pressure 137/91 H 106/65 118/72 05/18/18 17:26 05/18/18 17:31 05/18/18 17:40 Temperature Pulse Rate 55 L 64 57 L Respiratory Rate Blood Pressure 114/74 05/18/18 18:10 05/18/18 18:25 05/18/18 18:31 Temperature Pulse Rate 58 L 60 79 Respiratory Rate Blood Pressure 130/72 121/76 111/54 L 05/18/18 18:40 05/18/18 19:05 05/18/18 19:10 Temperature Pulse Rate 55 L 53 L 73 Respiratory Rate Blood Pressure 107/58 L 05/18/18 19:40 05/18/18 20:00 05/18/18 20:01 Temperature Pulse Rate 84 83 Respiratory Rate 18 Blood Pressure 102/90 111/93 H 05/18/18 20:15 05/18/18 20:30 05/18/18 20:31 Temperature 98.0 F Pulse Rate 71 55 L Respiratory Rate 18 18 Blood Pressure 128/77 123/65 05/18/18 20:45 05/18/18 21:01 05/18/18 21:15 Temperature Pulse Rate 103 H 67 75 Respiratory Rate 18 18 Blood Pressure 110/79 126/53 L 131/76 05/18/18 21:44 05/19/18 08:00 Temperature 97.8 F 97.7 F Pulse Rate 54 L 69 Respiratory Rate 18 20 Blood Pressure 121/69 112/63 Intake & Output 05/18/18 05/19/18 05/19/18 18:59 06:59 18:59 Weight 106 kg Other: Weight On Admission 106 kg Result Diagrams: 05/18/18 15:34 Objective Remarks: GENERAL: Well-nourished, well-developed patient. CARDIOVASCULAR: Regular rate and rhythm without murmurs, gallops, or rubs. RESPIRATORY: Breath sounds equal bilaterally. No accessory muscle use. ABDOMEN/GI: Abdomen soft, non-tender. Fundus: Firm, non-tender at umbilicus. GENITOURINARY: Light to moderate bleeding. EXTREMITIES: No cyanosis or edema, non-tender, without signs of DVT. Medications and IVs: Active Medications Acetaminophen (Tylenol) 650 mg PO Q4H PRN PRN Reason: PAIN SCALE 1 TO 2 Al Hydroxide/Mg Hydroxide (Milk Of Magnesia Liq) 30 ml PO Q12H PRN PRN Reason: Mild Constipation Benzocaine (Americaine 20% [place]) 1 spray TOPICAL Q4H PRN PRN Reason: For Perineum Discomfort Last Admin: 05/18/18 23:45 Dose: 1 spray Bisacodyl (Dulcolax Supp) 10 mg RECTAL DAILY PRN PRN Reason: SEVERE CONSITIPATION Ibuprofen (Motrin) 800 mg PO Q8H PRN PRN Reason: For cramping Last Admin: 05/19/18 10:08 Dose: 800 mg Lactulose (Lactulose Liq) 30 ml PO DAILY PRN PRN Reason: SEVERE CONSITIPATION Naloxone HCl (Narcan Inj) 0.1 mg IV.PUSH Q2M PRN PRN Reason: for opiate reversal Ondansetron HCl (Zofran Odt) 4 mg PO Q6H PRN PRN Reason: NAUSEA OR VOMITING Vit/Calcium/Iron/Folic Ac (Stuartnatal Plus 3) 1 tab PO DAILY [facility] Last Admin: 05/19/18 10:00 Dose: 1 tab Senna/Docusate Sodium (Carolyn-Colace) 1 tab PO BID [facility] Last Admin: 05/19/18 09:12 Dose: 1 tab Sennosides (Senokot) 17.2 mg PO Q12H PRN PRN Reason: Moderate Constipation Sertraline HCl (Zoloft) 50 mg PO DAILY [facility] Last Admin: 05/19/18 09:12 Dose: 50 mg Sodium Chloride (Ns Flush) 2 ml IV.FLUSH BID [facility] Last Admin: 05/18/18 23:45 Dose: 2 ml Sodium Chloride (Ns Flush) 2 ml IV.FLUSH PRN PRN PRN Reason: FLUSH AFTER USING IV ACCESS Witch Bria/Glycerin (Tucks Pads) 1 applicatio RECTAL QID PRN PRN Reason: HEMORRHOIDS Last Admin: 05/18/18 23:44 Dose: 1 applicatio Zolpidem Tartrate (Ambien) 5 mg PO HS PRN PRN Reason: SLEEP Assessment and Plan - Plan PPD #1 Rh negativen rhogam Routine care
[2018-05-20] MEDS: Witch Hazel 50%/Glyderin 12.5% 40 Pad Jar RECTAL PRN (08:43)
[2018-05-20] MEDS: Sertraline 50 MG Tablet PO SCH (08:44)
[2018-05-20] MEDS: Senna/Docusate Sodium 8.6/50 MG Tablet PO SCH (08:44)
[2018-05-20] MEDS: Prenatal Vit/Ca/Iron/Folic Acid Tablet PO SCH (08:44)
[2018-05-20 09:09] VITALS: BP 123/78; PULSE 60; RESP 16; TEMP 97.8
--- NOTE | 2018-05-20 14:45 | P.PNOB ---
Subjective Post day: 2 Interval history: Doing well Baby is fine Bleeding is normal Pain is well controlled. Objective Vital Signs/I&O: Vital Signs 05/19/18 18:16 05/19/18 20:00 05/20/18 08:00 Temperature 97.1 F L 98.1 F 97.8 F Pulse Rate 67 57 L 60 Respiratory Rate 16 18 16 Blood Pressure 136/78 126/71 123/78 Intake & Output 05/19/18 05/20/18 05/20/18 18:59 06:59 18:59 Intake Total 0 / 0 Balance 0 / 0 Intake: Intake (Blood Product) Amt 0 / 0 Rho(D) Immune Globulin Unit 0 / 0 [id number] Result Diagrams: 05/18/18 15:34 Objective Remarks: GENERAL: Well-nourished, well-developed patient. CARDIOVASCULAR: Regular rate and rhythm without murmurs, gallops, or rubs. RESPIRATORY: Breath sounds equal bilaterally. No accessory muscle use. ABDOMEN/GI: Abdomen soft, non-tender. Fundus: Firm, non-tender at umbilicus. GENITOURINARY: Light to moderate bleeding. EXTREMITIES: No cyanosis or edema, non-tender, without signs of DVT. Medications and IVs: Active Medications Acetaminophen (Tylenol) 650 mg PO Q4H PRN PRN Reason: PAIN SCALE 1 TO 2 Al Hydroxide/Mg Hydroxide (Milk Of Magnesia Liq) 30 ml PO Q12H PRN PRN Reason: Mild Constipation Benzocaine (Americaine 20% [place]) 1 spray TOPICAL Q4H PRN PRN Reason: For Perineum Discomfort Last Admin: 05/18/18 23:45 Dose: 1 spray Bisacodyl (Dulcolax Supp) 10 mg RECTAL DAILY PRN PRN Reason: SEVERE CONSITIPATION Ibuprofen (Motrin) 800 mg PO Q8H PRN PRN Reason: For cramping Last Admin: 05/19/18 21:12 Dose: 800 mg Lactulose (Lactulose Liq) 30 ml PO DAILY PRN PRN Reason: SEVERE CONSITIPATION Naloxone HCl (Narcan Inj) 0.1 mg IV.PUSH Q2M PRN PRN Reason: for opiate reversal Ondansetron HCl (Zofran Odt) 4 mg PO Q6H PRN PRN Reason: NAUSEA OR VOMITING Vit/Calcium/Iron/Folic Ac (Stuartnatal Plus 3) 1 tab PO DAILY [facility] Last Admin: 05/20/18 08:44 Dose: 1 tab Senna/Docusate Sodium (Carolyn-Colace) 1 tab PO BID [facility] Last Admin: 05/20/18 08:44 Dose: 1 tab Sennosides (Senokot) 17.2 mg PO Q12H PRN PRN Reason: Moderate Constipation Sertraline HCl (Zoloft) 50 mg PO DAILY [facility] Last Admin: 05/20/18 08:44 Dose: 50 mg Sodium Chloride (Ns Flush) 2 ml IV.FLUSH BID [facility] Last Admin: 05/19/18 21:12 Dose: Not Given Sodium Chloride (Ns Flush) 2 ml IV.FLUSH PRN PRN PRN Reason: FLUSH AFTER USING IV ACCESS Witch Bria/Glycerin (Tucks Pads) 1 applicatio RECTAL QID PRN PRN Reason: HEMORRHOIDS Last Admin: 05/20/18 08:43 Dose: 1 applicatio Zolpidem Tartrate (Ambien) 5 mg PO HS PRN PRN Reason: SLEEP Assessment and Plan - Diagnosis (1) Previous section complicating Code(s): O34.219 - Maternal care for unspecified type scar from previous delivery Status: Acute (2) History of pre-eclampsia in prior , currently Code(s): O09.299 - Supervision of with other poor reproductive or obstetric history, unspecified trimester Status: Acute (3) 38 weeks gestation of Code(s): Z3A.38 - 38 weeks gestation of ; F32.9 - Major depressive disorder, single episode, unspecified Status: Acute - Plan PPD #1 Rh negativen rhogam Routine care
== END 2018-05-20 17:07 | disposition home or self-care (01) ==
LOC: HOBED 14:37 → H2E 14:57 → H1EA 21:37
PROVIDERS: ADMIT Obstetrics & Gynecology; ATTEND Obstetrics & Gynecology